=== PATIENT | female | born 1950 | race Caucasian/White ===

== ENCOUNTER 2020-05-01 08:58 | Emergency (ER) | payer MEDICARE ==
[~2020-05-01] VITALS: Ht 170.2 cm; Wt 93.6 kg
--- NOTE | 2020-05-01 09:16 | NUR ---
PT AMBULATORY TO ROOM 7 W/ C/O REDNESS AND RASH TO R SIDE FACE AND RIGHT UNDERNEATH R EYE. PT DENIES ANY CHANGES IN VISION. PT STATES IT STARTED YESTERDAY. PT STATES HX SHINGLES 10-15 YEARS AGO. PT RESTING ON [employer]. NADN. MONITORS APPLIED.
[2020-05-01] MEDS ORDERED: FLUORESCEIN OPHTHALMIC 1 MG STRIP ONE (09:28)
[2020-05-01 10:09] VITALS: BP 135/59
== END 2020-05-01 10:10 | disposition home or self-care (01) ==
LOC: ED 10:04
DX: B02.9 Zoster without complications (principal); I10 Essential (primary) hypertension
CPT/HCPCS: 99283